=== PATIENT | female | born 1980 | race Hispanic/Latino ===

== ENCOUNTER 2021-08-09 20:11 | Emergency (ER) | payer BC, OTHER ==
[2021-08-09] MEDS ORDERED: diphenhydrAMINE 50 MG/ML VIAL ONE (21:03)
[2021-08-09] MEDS ORDERED: Metoclopramide HCl 10 MG/2 ML VIAL ONE (21:03)
[2021-08-09] MEDS ORDERED: Acetaminophen 500 MG TAB ONE (21:03)
[2021-08-09] MEDS ORDERED: Ketorolac Tromethamine 30 MG/ML VIAL ONE (22:14)
== END 2021-08-09 23:24 | disposition home or self-care (01) ==
LOC: CSHERS 20:11
DX: R51.9 Headache, unspecified (principal); E11.9 Type 2 diabetes mellitus without complications; Z79.82 Long term (current) use of aspirin
CPT/HCPCS: 70450; 96365; 96375; J1200; J1885; J2765